=== PATIENT | female | born 1975 | race Caucasian/White ===

== ENCOUNTER 2016-11-28 10:50 | Emergency (ER) | payer BC ==
[2016-11-28] MEDS ORDERED: ASPIRIN 81 MG TAB.CHEW PO ONE (10:59)
[2016-11-28] MEDS ORDERED: ASPIRIN 81 MG TAB.CHEW ONE (11:07)
[2016-11-28] MEDS: NITROGLYCERIN 0.4 MG/TAB BTL SL PRN ×3 (11:07→14:32)
[2016-11-28 11:10] LABS: Hematocrit 41.2 % (37.0-47.0); Mean Cell Volume 83.7 fl (78-100); Mean Corpuscular Hemoglobin 28.5 pg (27-31); Mean Platelet Volume 9.3 fl (6.0-9.5); Neutrophil # 9.6 K/mm3 (1.3-6.0); Neutrophil % 78.6 % (42-75.0); Platelet Count 371 K/mm3 (150-450); Red Blood Count 4.92 M/mm3 (4.2-5.4); Red Cell Distribution Width 13.5 % (11.5-14.0); White Blood Count 12.2 K/mm3 (4.0-10.5)
--- NOTE | 2016-11-28 11:16 | ERNOTE ---
Chest Pain/Cardiac HPI Date of Service: 11/28/16 Chief Complaint: Chest Pain Time Seen by Provider: 11/28/16 10:54 Source: patient Exam Limitations: no limitations Immunizations: IMMUNIZATION HX Immunizations Up to Date Yes History of Influenza Vaccine No Hx Pneumococcal Vaccination No Allergies/Adverse Reactions: Allergies acetaminophen [From Percocet] Allergy (Mild, Verified 11/28/16 10:59) Hives clindamycin Allergy (Mild, Verified 11/28/16 10:59) Hives oxycodone HCl [From Percocet] Allergy (Mild, Verified 11/28/16 10:59) Hives Penicillins Allergy (Mild, Verified 11/28/16 10:59) Hives Sulfa (Sulfonamide Antibiotics) Allergy (Mild, Verified 11/28/16 10:59) Hives Home Medications: HOME MEDICATIONS Citalopram Hydrobromide [Celexa] 40 mg PO HS 02/18/13 [Last Taken Unknown] ALPRAZolam [Xanax] 0.25 mg PO HS 02/23/16 [Last Taken Unknown] Metoprolol Succinate 25 mg PO HS 02/23/16 [Last Taken 02/26/16 20:30] Ibuprofen [Motrin] 600 mg PO Q6H PRN #30 tablet 02/27/16 [Last Taken Unknown] Doxycycline Hyclate [Morgidox] 100 mg PO BID #14 capsule 11/28/16 [Last Taken Unknown] Narrative: 41-year-old female presents to the emergency room for chest discomfort. She states that she started having tightness in her chest last night or yesterday. Patient states that she did take a Xanax did not help and her chest pain is about a 4. She says that she has pain in her ears as well but she has been treating herself for swimmer's ear. Patient does not feel short of breath nor she nauseous or vomiting at this time. Patient has a history of hypertension and anxiety. Date (Duration): 11/28/16 Timing: constant Severity/Quality: mild, pressure Location: central Chest Pain Radiation: jaw, neck Activities at Onset: none Modifying Factors - Improves: Present: nothing Modifying Factors - Worsens: Present: nothing Nitro Today/Relief: provided by ED, complete relief Aspirin Treatment Today: 325 mg x 1, provided by ED Associated Symptoms: Present: headache Prior Chest Pain/Cardiac Workup: Reports: prior chest pain Review of Systems - Review of Systems Constitutional: Present: See HPI, recent illness EYE: Present: no symptoms reported ENT: Present: See HPI, ear pain Respiratory: Present: no symptoms reported Cardiology: Present: See HPI, chest pain Gastrointestinal/Abdominal: Present: no symptoms reported Genitourinary: Present: no symptoms reported Musculoskeletal: Present: no symptoms reported Skin: Present: no symptoms reported Neurological: Present: no symptoms reported Endocrine: Present: no symptoms reported Hematologic/Lymphatic: Present: no symptoms reported Psych: Present: no symptoms reported All Other Systems: All systems neg except as marked - Patient's Past Medical History Patient History - Medical: Anxiety, Depression, Other Patient History - Cardiac/Respiratory: Hyperlipidemia, Other Patient History - Cancer: No Hx of Cancer Patient History - Surgical Procedures: Back Surgery, Cholecystectomy, D & C, Other Patient History - Other: None LMP (females 10-50): now LMP (Calendar): 02/11/16 - Family History Brother Family History - Medical: No pertinent hx Family History - Cardiac/Respiratory: No pertinent hx Father Family History - Medical: No pertinent hx Family History - Cardiac/Respiratory: Hypertension Grandmother-Maternal Family History - Medical: Diabetes Type 2 Family History - Cardiac/Respiratory: Asthma, Coronary Heart Disease Mother Family History - Medical: No pertinent hx Family History - Cardiac/Respiratory: Hypertension Aunt Family History - Medical: No pertinent hx Family History - Cardiac/Respiratory: No pertinent hx - Social History Living Situations: home Abuse History: No History of abuse Psych History: Hx of Anxiety Smoking Status: Never smoker Alcohol Use: none Drug Use: none - Immunizations Immunizations Up to Date: Yes Hx Pneumococcal Vaccination: No History of Influenza Vaccine: No Physical Exam - Physical Exam Narrative: 41-year-old female presents to the emergency room for chest pressure. Patient states that her chest pressure started last night and has not resolved. Patient has never had chest pressure before. Patient denies nausea vomiting shortness of breath. Patient has bilateral otitis media. General Appearance: Present: wd/wn, alert, no apparent distress Head Exam: Present: normal inspection, no evidence of injury Eye Exam: Normal inspection: bilateral Ears, Nose, Throat: Present: normal except -, abnormal TM (R), abnormal TM (L), normal pharynx Neck: Present: normal inspection, nontender, full range of motion Respiratory: Present: no respiratory distress, normal breath sounds, no accessory muscle use, chest nontender, lungs clear. Absent: chest tenderness, respiratory distress, crackles, rales, rhonchi, stridor, wheezing, pleural rub Cardiovascular/Chest: Present: regular rate, rhythm, no murmur, normal peripheral pulses. Absent: tachycardia Gastrointestinal/Abdominal: Present: normal bowel sounds, nontender, nondistended, soft, no organomegaly Back Exam: Present: normal inspection, normal range of motion, no CVA tenderness , no vertebral tenderness Extremity Exam: Present: normal inspection, non-tender, normal range of motion, no edema Neurological Exam: Present: alert, oriented, normal mood/affect, no motor/ sensory deficits. Absent: facial droop Skin Exam: Present: normal color, warm/dry Lymphatic Exam: Present: no adenopathy ED Progress - Results and Orders Patient's Lab Results:: I have reviewed the patient's lab results. Results and Orders: mild elevated WBC, negative trop AT 1200. patient ua + for blood. patient states she has been having bleeeding from her peroid. - Vital Signs Patient's Vital Signs:: I have reviewed the patient's vital signs. Vital Signs: Vital Signs 11/28/16 10:54 Temperature 36.8 C Pulse Rate 83 Respiratory 13 Rate Blood Pressure 157/98 O2 Sat by Pulse 98 Oximetry - EKG EKG: NSR EKG read: Reviewed by me EKG Comments: interp by ER Attending - X-Ray X-Ray #1 X-Ray: chest Interpretation: Reviewed by me X-ray Comments: COMPARISONS: 12/05/2015 FINDINGS: Chest PA Lateral * Normal lung volumes. No consolidation or mass. Calcified granuloma of the right middle lobe, stable. No pneumothorax or pleural fluid collections. Mild cardiomegaly, stable. Trachea is in normal position. Bones show degenerative changes of the spine. IMPRESSION: 1. No focal acute cardiopulmonary finding. 2. Stable findings are as above. Electronically signed by Lucien Gomez M.D.. Lucien Gomez MD Dict: 11/28/16 1143 Typed: 11/28/16 1143/ - Progress/Reassessment Chief Complaint: Chest Pain Progress:: Improved Plan - Plan Plan: 1223: patient informed me that yesterday she was informed she was going to have a hysterectomy and became tearful. patients cp was relieved by nitro. patients cp came back at 1400. Cardiology updated on patients condition and agrees that she needs to be admitted for a stress test r/t CP. patient to be transferred to [facility] via EMS. ER Physician Celia given update on patients arrival to her ED. SHe is aware that dr Lopez is accepting. Departure - Departure Clinical Impression: Anxiety about health, Chest pain of uncertain etiology Otitis media Qualifiers: Otitis media type: unspecified Chronicity: acute Laterality: unspecified laterality Qualified Code(s): H66.90 - Otitis media, unspecified, unspecified ear Disposition: [facility] Condition: Stable Prescriptions: Doxycycline Hyclate [Morgidox] 100 mg PO BID #14 capsule
[2016-11-28 11:23] LABS: Prothrombin Time (Patient) 10.3 Seconds (9.4-11.4)
[2016-11-28 11:28] LABS: ALT 33 U/L (19-67); AST 18 U/L (0-48); Albumin * 3.5 gm/dl (3.4-5.0); Alkaline Phosphatase * 68 U/L (50-170); Anion Gap 9.7 mmol/L (6.8-13.8); BUN/Creatinine Ratio 14.5 (9.0-21.6); Bilirubin, Total 0.9 mg/dL (0.0-1.1); Blood Urea Nitrogen 11 mg/dL (3-23); Ca. Corrected For Albumin 8.4 mg/dL (8.4-10.2); Calcium * 8.3 mg/dL (7.9-10.9); Carbon Dioxide 29.4 mmol/L (24-32.6); Chloride 105 mmol/L (97-106); Glucose * 96 mg/dL (70-110); Potassium 4.1 mmol/L (3.4-4.6); Sodium 140 mmol/L (132-142); Total Protein 6.8 gm/dL (6.2-8.2); Troponin I Less than 0.017 ng/ml (0.00-0.10)
[2016-11-28 11:29] LABS: INR 0.99 INR (0.90-1.10); Partial Thrombolplastin Time 26.6 Seconds (24-32)
[2016-11-28] MEDS ORDERED: ALBUTEROL SULFATE/IPRATROPIUM 3 ML NEBU IH ONE ×2 (12:17→12:37)
[2016-11-28 12:20] LABS: Urine Bilirubin Negative (NEGATIVE); Urine Blood 50 /ul (NEGATIVE); Urine Ketone Negative (NEGATIVE); Urine Nitrite Negative (NEGATIVE); Urine Protein Negative (NEGATIVE); Urine Urobilinogen Normal (NORMAL); Urine pH 6.5 pH (5.0-7.0)
[2016-11-28] MEDS ORDERED: ALPRAZolam 0.25 MG TABLET PO ONE (12:26)
[2016-11-28 12:28] LABS: Urine Appearance Clear; Urine Bacteria TRACE; Urine Color Yellow; Urine RBC TRACE /hpf (0-5); Urine WBC None Seen /hpf (0-5)
[2016-11-28] MEDS ORDERED: DOXYCYCLINE HYCLATE 100 MG in DEXTROSE 5 % IN WATER 100 ML IV SCH ×2 (12:30)
[2016-11-28] MEDS ORDERED: ALPRAZolam 0.25 MG TABLET ONE (12:37)
[2016-11-28 14:32] VITALS: BP 133/66
== END 2016-11-28 14:35 | disposition short-term general hospital (02) ==
LOC: ER 10:50
DX: R07.9 Chest pain, unspecified (principal); F41.8 Other specified anxiety disorders; H66.90 Otitis media, unspecified, unspecified ear; F32.9 Major depressive disorder, single episode, unspecified